=== PATIENT | male | born 1965 | race African-American/Black ===

== ENCOUNTER 2021-06-30 09:31 | Emergency (ER) | payer OTHER ==
[~2021-06-30] VITALS: Ht 180.3 cm; Wt 88.5 kg
[~2021-06-30 09:31] MED LIST: NORVASC5 MG PO; PRINIVIL20 MG PO; [UNRECOGNIZED DRUG - OTHER] PO
[2021-06-30] MEDS ORDERED: COZAAR100 MG PO (10:17)
[2021-06-30 13:25] LABS: ECSTASY (MDMA) NEGATIVE (NEGATIVE); MARIJUANA (THC) POSITIVE (NEGATIVE); METHADONE NEGATIVE (NEGATIVE); OPIATES NEGATIVE (NEGATIVE)
[2021-06-30 13:26] LABS: AMPHETAMINES NEGATIVE (NEGATIVE); BARBITURATES NEGATIVE (NEGATIVE); OXYCODONE NEGATIVE (NEGATIVE)
== END 2021-06-30 13:27 | disposition home or self-care (01) ==
LOC: FER 09:31
PROVIDERS: Emergency Medicine
DX: F43.9 Reaction to severe stress, unspecified (principal); F43.20 Adjustment disorder, unspecified; I10 Essential (primary) hypertension; F17.210 Nicotine dependence, cigarettes, uncomplicated
CPT/HCPCS: 36415; 80305; 99283; G0480